=== PATIENT | male | born 1990 | race Caucasian/White ===

== ENCOUNTER 2023-07-05 18:55 | Emergency (ER) | payer BC, OTHER ==
[2023-07-05] MEDS: PROPARACAINE 0.5% OPHTH DROPS 15 ML BTL BOTH EYES STA (19:18)
[2023-07-05] MEDS: FLUORESCEIN STRIPS 1 MG STRIP BOTH EYES ONE (19:19)
[2023-07-05 19:32] VITALS: TEMP 98.8
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
[2023-07-05] MEDS: TOBRAMYCIN 0.3% OPHTH DROPS 5 ML BTL LEFT EYE STA (20:01)
[2023-07-05 20:09] VITALS: BP 149/93; PULSE 93; RESP 20
== END 2023-07-05 20:24 | disposition home or self-care (01) ==
LOC: EC 18:55
DX: T15.92XA Foreign body on external eye, part unspecified, left eye, initial encounter (principal); Z91.030 Bee allergy status; Z91.013 Allergy to seafood; W44.8XXA Other foreign body entering into or through a natural orifice, initial encounter; Y99.0 Civilian activity done for income or pay
CPT/HCPCS: 65222; 99283